=== PATIENT | male | born 1975 | race Caucasian/White ===

== ENCOUNTER → 2023-09-07 | Emergency (ER) | payer BC ==
[2023-09-07 06:40] LABS: Absolute Eosinophils 0.1 K/uL (0-0.5); Absolute Monocytes 0.6 K/uL (0.1-1.3); Absolute Neutrophil 3.1 K/uL (1.8-8.0); Basophils % 0.9 % (0-1.3); Eosinophils % 1.7 % (0-4.4); Hemoglobin 16.1 g/dL (13.6-17.9); Lymphocytes % 21.2 % (15.3-44.8); MCV 88.6 fL (80-100); Monocytes % 12.6 % (3.3-12.3); Neutrophils % 63.6 % (41.7-73.7); Nucleated Red Blood Cells % 0.1 % (0-0); Platelets 156 thou/uL (152-406); Red Cell Distribution Width 13.1 % (12.1-15.2)
[2023-09-07 06:54] LABS: PT Prothrombin Time 11.8 SECONDS (9.5-12.5); Protime INR 1.07
[2023-09-07 06:59] LABS: Albumin/Globulin Ratio 1.1 (1.1-1.8); Bilirubin Direct 0.2 mg/dL (0-0.2); Bilirubin Indirect, Calculated 0.8 mg/dL (0.2-0.8); Globulin 3.5 g/dL (2.3-3.5); Protein, Total 7.5 g/dL (6.4-8.2); Troponin High Sensitivity 5.1 pg/mL (<58.9)
--- NOTE | 2023-09-07 07:25 | RAD REPORT ---
EXAM DESCRIPTION: RAD - Chest Single View - 09/07/2023 6:27 am CLINICAL HISTORY: CHEST PAIN Chest pain. COMPARISON: No comparisons FINDINGS: Portable technique limits examination quality. The lungs are grossly clear. The heart is normal in size. No displaced fractures. IMPRESSION: No acute intrathoracic process suspected.
--- NOTE | 2023-09-07 07:55 | RAD REPORT ---
EXAM DESCRIPTION: CT - Head Brain Wo Cont - 09/07/2023 7:45 am CLINICAL HISTORY: DIZZINESS Headache, drowsiness, dizziness COMPARISON: No comparisons TECHNIQUE: All CT scans are performed using dose optimization technique as appropriate and may inclu de automated exposure control or mA/KV adjustment according to patient size. FINDINGS: No intracranial hemorrhage, hydrocephalus or extra-axial fluid collection.No areas of brai n edema or evidence of midline shift. The paranasal sinuses and mastoids are clear. The calvarium is intact. IMPRESSION: No acute intracranial abnormality.
--- NOTE | 2023-09-07 08:07 | ER ---
Nurse's Notes [facility] Name: Young Fernandez Age: 48 yrs Sex: Male : 1975 Arrival Date: 09/07/2023 Time: 06:03 Bed 6 Private MD: Diagnosis: Syncope Near;Essential (primary) hypertension Presentation: 09/06 06:19 Chief complaint: Patient states: woke up this morning and was sitting on couch and cm10 could feel blood pressure "going up and down." Pt reports that he has some tingling to left side of face. Pt denies any chest pain or shortness of breath. Coronavirus screen: Client denies travel out of the [place] in the last 14 days. At this time, the client does not indicate any symptoms associated with coronavirus-19. Ebola Screen: Patient denies travel to an Ebola-affected area in the 21 days before illness onset. No symptoms or risks identified at this time. Initial Sepsis Screen: Does the patient meet any 2 criteria? No. Patient's initial sepsis screen is negative. Does the patient have a suspected source of infection? No. Patient's initial sepsis screen is negative. Risk Assessment: Do you want to hurt yourself or someone else? Patient reports no desire to harm self or others. Onset of symptoms was September 07, 2023. 06:19 Method Of Arrival: Ambulatory 10 06:19 Acuity: ROSE 3 cm10 Historical: - Allergies: 06:21 No Known Allergies; cm10 - Home Meds: 06:21 lisinopril 10 mg Oral tablet [Active]; hydrochlorothiazide 12.5 mg Oral tablet [Active];cm10 - PMHx: 06:21 Hypertensive disorder; Deep vein thrombosis; cm10 - Immunization history:: Adult Immunizations up to date. - Social history:: Smoking status: unknown. Screenin:20 Abuse screen: Denies threats or abuse. Denies injuries from another. jw7 06:20 [facility] ED Fall Risk Assessment (Adult) History of falling in the last 3 months, jw7 including since admission No falls in past 3 months (0 pts) Confusion or Disorientation No (0 pts) Intoxicated or Sedated No (0 pts) Impaired Gait No (0 pts) Mobility Assist Device Used No (0 pt) Altered Elimination No (0 pt) Score/Fall Risk Level 0 - 2 = Low Risk Oriented to surroundings, Maintained a safe environment, Educated pt \\T\\ family on fall prevention, incl call for assistance when getting out of bed. Nutritional screening: No deficits noted. Tuberculosis screening: No symptoms or risk factors identified. Assessment: 06:20 General: Appears in no apparent distress. comfortable, Behavior is calm, cooperative. jw7 Pain: Denies pain. Neuro: Level of Consciousness is awake, alert, obeys commands, Oriented to person, place, time, situation. Cardiovascular: Heart tones S1 S2 present Capillary refill < 3 seconds Clubbing of nail beds is absent JVD is absent Patient's skin is warm and dry. Rhythm is sinus rhythm. Respiratory: Airway is patent Trachea midline Respiratory effort is even, unlabored, Respiratory pattern is regular, symmetrical. GI: Abdomen is round non-distended, Bowel sounds present X 4 quads. Abd is soft and non tender X 4 quads. : No deficits noted. No signs and/or symptoms were reported regarding the genitourinary system. EENT: No deficits noted. No signs and/or symptoms were reported regarding the EENT system. Derm: Skin is intact, is healthy with good turgor, Skin is dry, Skin is normal, Skin temperature is warm. Musculoskeletal: Circulation, motion, and sensation intact. Range of motion: intact in all extremities. 08:00 Reassessment: Patient is alert, oriented x 3, equal unlabored respirations, skin aa5 warm/dry/pink. Dr. Bustamante at bedside. . 08:30 Reassessment: Patient is alert, oriented x 3, equal unlabored respirations, skin aa5 warm/dry/pink. Vital Signs: 06:19 BP 144 / 91; Pulse 93; Resp 16 S; Temp 97.6; Pulse Ox 95% on R/A; Weight 149.69 kg (R); cm10 Height 6 ft. 3 in. (R); Pain 0/10; 06:30 BP 131 / 84; Pulse 80; Resp 15 S; Pulse Ox 95% on R/A; jw7 08:00 BP 120 / 80; Pulse 82; Resp 18 S; Pulse Ox 100% on R/A; aa5 06:19 Body Mass Index 41.25 (149.69 kg, 190.5 cm) cm10 06:19 Pain Scale: Adult cm10 ED Course: 06:07 Patient arrived in ED. mr 06:18 David Motley MD is Attending Physician. sp4 06:20 Patient has correct armband on for positive identification. Bed in low position. Call jw7 light in reach. Side rails up X 1. Provided Education on: Use of Call Light. 06:21 Triage completed. cm10 06:22 Arm band placed on Patient placed in an exam room, on a stretcher. cm10 06:29 XRAY Chest (1 view) In Process Unspecified. EDMS 06:30 Client placed on continuous cardiac and pulse oximetry monitoring. NIBP monitoring jw7 applied. wash operator on. 06:30 Inserted saline lock: 20 gauge in right antecubital area, using aseptic technique. jw7 Blood collected. 06:45 Initial lab(s) drawn, by me, sent to lab. EKG done, by ED staff, reviewed by David Motley MD. 06:52 Door closed. Noise minimized. jw7 07:09 Attending Physician role handed off by David Motley MD cp3 07:09 Myah Bustamante MD is Attending Physician. cp3 07:12 Report given to JOEL Moura. jw7 07:46 CT Head Brain wo Cont In Process Unspecified. EDMS 08:06 Richmond Ramirez MD is Referral Physician. cp3 08:30 IV discontinued, intact, bleeding controlled, No redness/swelling at site. Pressure aa5 dressing applied. 08:30 No provider procedures requiring assistance completed. aa5 Administered Medications: No medications were administered Medication: 08:30 VIS not applicable for this client. aa5 Outcome: 08:07 Discharge ordered by . cp3 08:30 Discharged to home ambulatory, with significant other, aa5 08:30 Condition: stable 08:30 Discharge instructions given to patient, Instructed on discharge instructions, follow up and referral plans. Demonstrated understanding of instructions, follow-up care, 08:32 Patient left the ED. eb Signatures: Dispatcher [employer] EDMyah Espinoza MD MD cp3 Yvonne Gray, Reg Reg mr Hawkins, Zeny RN RN aa5 Mariola Fabian Jodi RN David Rojas MD MD sp4 Raymond, Anahi, RN RN cm10
--- NOTE | 2023-09-07 08:07 | EDPHYS ---
Physician Documentation [facility] Name: Young Fernandez Age: 48 yrs Sex: Male : 1975 Arrival Date: 09/07/2023 Time: 06:03 Bed 6 Private MD: ED Physician Myah Bustamante HPI: 09/06 07:31 This 48 yrs old Male presents to ER via Ambulatory with complaints of High Blood cp3 Pressure, Dizziness. 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 The patient endorses that he woke up at 4 AM to let his cat out checked his blood pressure which was a little bit elevated and began feeling dizzy and a little lightheaded. No chest pain, no shortness of breath, no diaphoresis, no nausea, no vomiting, no palpitations, no syncope. Historical: - Allergies: 06:21 No Known Allergies; cm10 - Home Meds: 06:21 lisinopril 10 mg Oral tablet [Active]; hydrochlorothiazide 12.5 mg Oral tablet [Active];cm10 - PMHx: 06:21 Hypertensive disorder; Deep vein thrombosis; cm10 - Immunization history:: Adult Immunizations up to date. - Social history:: Smoking status: unknown. ROS: 07:31 Constitutional: Negative for fever, chills, and weight loss, Eyes: Negative for injury, cp3 pain, redness, and discharge, ENT: Negative for injury, pain, and discharge, Neck: Negative for injury, pain, and swelling, Cardiovascular: Negative for chest pain, palpitations, and edema, Respiratory: Negative for shortness of breath, cough, wheezing, and pleuritic chest pain, Abdomen/GI: Negative for abdominal pain, nausea, vomiting, diarrhea, and constipation, Back: Negative for injury and pain, MS/Extremity: Negative for injury and deformity, Skin: Negative for injury, rash, and discoloration, Psych: Negative for depression, anxiety, suicide ideation, homicidal ideation, and hallucinations, Allergy/Immunology: Negative for hives, rash, and allergies, Endocrine: Negative for neck swelling, polydipsia, polyuria, polyphagia, and marked weight changes, Hematologic/Lymphatic: Negative for swollen nodes, abnormal bleeding, and unusual bruising, 07:31 Neuro: Positive for dizziness, Exam: 07:31 Constitutional: This is a well developed, well nourished patient who is awake, alert, cp3 and in no acute distress. Head/Face: Normocephalic, atraumatic. Eyes: Pupils equal round and reactive to light, extra-ocular motions intact. Lids and lashes normal. Conjunctiva and sclera are non-icteric and not injected. Cornea within normal limits. Periorbital areas with no swelling, redness, or edema. ENT: Nares patent. No nasal discharge, no septal abnormalities noted. Tympanic membranes are normal and external auditory canals are clear. Oropharynx with no redness, swelling, or masses, exudates, or evidence of obstruction, uvula midline. Mucous membranes moist. Neck: Trachea midline, no thyromegaly or masses palpated, and no cervical lymphadenopathy. Supple, full range of motion without nuchal rigidity, or vertebral point tenderness. No Meningismus. Chest/axilla: Normal chest wall appearance and motion. Nontender with no deformity. No lesions are appreciated. Cardiovascular: Regular rate and rhythm with a normal S1 and S2. No gallops, murmurs, or rubs. Normal PMI, no JVD. No pulse deficits. Respiratory: Lungs have equal breath sounds bilaterally, clear to auscultation and percussion. No rales, rhonchi or wheezes noted. No increased work of breathing, no retractions or nasal flaring. Abdomen/GI: Soft, non-tender, with normal bowel sounds. No distension or tympany. No guarding or rebound. No evidence of tenderness throughout. Back: No spinal tenderness. No costovertebral tenderness. Full range of motion. Vital Signs: 06:19 BP 144 / 91; Pulse 93; Resp 16 S; Temp 97.6; Pulse Ox 95% on R/A; Weight 149.69 kg (R); cm10 Height 6 ft. 3 in. (R); Pain 0/10; 06:30 BP 131 / 84; Pulse 80; Resp 15 S; Pulse Ox 95% on R/A; jw7 08:00 BP 120 / 80; Pulse 82; Resp 18 S; Pulse Ox 100% on R/A; aa5 06:19 Body Mass Index 41.25 (149.69 kg, 190.5 cm) cm10 06:19 Pain Scale: Adult cm10 Procedures: 07:31 Performed EKG interpreted by me: Normal sinus rhythm, rate 83, QT 396, no evidence of cp3 acute VA. MDM: 06:18 Patient medically screened. sp4 07:31 Differential diagnosis: hypertensive crisis, Malignant HTN, CVA, intracerebral cp3 hemorrhage. Data reviewed: vital signs, nurses notes, lab test result(s), EKG. Consideration of Admission/Observation Escalation of care including admission/observation considered. 08:04 Independent interpretation of the following test(s) in the Emergency Department EKG: cp3 See my EKG interpretation above CT Scan: My interpretation is CT head interpreted by me and is negative for intracranial hemorrhage or acute CVA. Radiology Department Ultrasound: My interpretation is Chest x-ray interpreted by me and is negative for acute cardiopulmonary process. 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 Counseling: I had a detailed discussion with the patient and/or guardian regarding to return to the emergency department if symptoms worsen or persist or if there are any questions or concerns that arise at home. Response to treatment: the patient's symptoms have resolved after treatment. ED course: patient under significant stress at home and work. exam normal. cardiology follow up. 09/06 06:18 Order name: Basic Metabolic Panel; Complete Time: 07:15 sp4 09/06 06:18 Order name: CBC with Diff; Complete Time: 07:15 sp4 09/06 06:18 Order name: LFT's; Complete Time: 07:15 sp4 09/06 06:18 Order name: Magnesium; Complete Time: 07:15 sp4 09/06 06:18 Order name: NT PRO-BNP; Complete Time: 07:15 sp4 09/06 06:18 Order name: PT-INR; Complete Time: 07:15 sp4 09/06 06:18 Order name: Troponin HS; Complete Time: 07:15 sp4 09/06 06:18 Order name: XRAY Chest (1 view); Complete Time: 08:00 sp4 09/06 07:31 Order name: CT Head Brain wo Cont; Complete Time: 08:00 cp3 09/06 06:18 Order name: EKG; Complete Time: 06:19 sp4 09/06 06:18 Order name: Cardiac monitoring; Complete Time: 06:53 sp4 03/16 06:18 Order name: EKG - Nurse/Tech; Complete Time: 06:53 sp4 09/06 06:18 Order name: IV Saline Lock; Complete Time: 06:53 sp4 09/06 06:18 Order name: Labs collected and sent; Complete Time: 06:53 sp4 09/06 06:18 Order name: O2 Per Protocol; Complete Time: 06:22 sp4 09/06 06:18 Order name: O2 Sat Monitoring; Complete Time: 06:22 sp4 Administered Medications: No medications were administered Disposition Summary: 09/07/23 08:07 Discharge Ordered Condition: Stable cp3 Diagnosis - Syncope Near cp3 - Essential (primary) hypertension cp3 Followup: cp3 - With: Richmond Ramirez MD - When: 1 week - Reason: Recheck today's complaints Discharge Instructions: - Discharge Summary Sheet cp3 - Near-Syncope, [id number] cp3 Forms: - Medication Reconciliation Form cp3 - Thank You Letter cp3 - Antibiotic Education cp3 - Prescription Opioid Use cp3 - Patient Portal Instructions cp3 - Leadership Thank You Letter cp3 - Work release form eb Signatures: Dispatcher [employer] Myah Mooney MD MD cp3 David Motley MD MD sp4 Anahi Andrade, RN RN cm10
[2023-09-07 08:38] VITALS: BP 131/84; TEMP 97.6; O2SAT 95
--- NOTE | 2023-09-10 14:15 | EKG ---
Test Date: 2023-09-07 Test Time: 05:40:18 Mds Manager: LEOBARDO MEASUREMENT RESULTS: Intervals: Rate: 83 HI: 188 QRSD: 98 QT: 396 QTc: 465 [place]: P: 45 HI: 188 QRS: 77 T: 44 INTERPRETIVE STATEMENTS: Normal sinus rhythm Low voltage QRS Borderline ECG No previous ECG available for comparison Electronically Signed On 09-10-23 14:07:51 CDT by Richmond Ramirez
== END ==
LOC: ER 06:03
DX: R55 Syncope and collapse (principal); I10 Essential (primary) hypertension; Z86.718 Personal history of other venous thrombosis and embolism
CPT/HCPCS: 36415; 70450; 71045; 80048; 80076; 83735; 83880; 84484; 85025; 85610; 93005; 99284